=== PATIENT | female | born 1995 | race Caucasian/White ===

== ENCOUNTER 2017-06-07 17:10 | Emergency (ER) | payer OTHER ==
[2017-06-07 19:26] LABS: BASOPHIL 0.3 % (0-2); EOSINOPHIL 0.4 % (0-5); HCT 35.4 % (37.0-47.0); HGB 12.5 g/dl (12.5-16.0); LYMPHOCYTE 18.2 % (15-48); MCH 30.3 pg (25.0-31.0); MCHC 35.3 g/dL (32.0-36.0); MCV 85.9 fL (78.0-100.0); MONOCYTE 7.6 % (0-12); MPV 10.9 fL (6.0-9.5); NEUTROPHIL 73.5 % (41-80); PLT 250 K/uL (150-400); RBC 4.12 M/uL (4.20-5.40); RDW 12.7 % (11.5-14.0); WBC 10.7 K/uL (4.0-10.5)
[2017-06-07 19:26] LABS: BILIRUBIN NEGATIVE (NEGATIVE); BLOOD NEGATIVE Ery/uL (NEGATIVE); CLARITY CLEAR (CLEAR); COLOR YELLOW (YELLOW); GLUCOSE (U) NORMAL (NORMAL); KETONE (U) NEGATIVE (NEGATIVE); LEUKOCYTES NEGATIVE Leu/uL (NEGATIVE); NITRITE NEGATIVE (NEGATIVE); PROTEIN NEGATIVE (NEGATIVE); UROBILINOGEN 0.2 mg/dL (0.2-1.0)
[2017-06-07 19:31] LABS: AMPHETAMINES NEGATIVE (NEGATIVE); BENZODIAZEPINES NEGATIVE (NEGATIVE); COCAINE NEGATIVE (NEGATIVE)
[2017-06-07 19:32] LABS: BARBITURATES NEGATIVE (NEGATIVE); MARIJUANA (THC) NEGATIVE (NEGATIVE); METHADONE NEGATIVE (NEGATIVE); TRICYCLIC ANTIDEPRESSANT NEGATIVE (NEGATIVE)
[2017-06-07 19:41] LABS: CREATININE 0.7 mg/dL (0.5-1.0); POTASSIUM 3.8 mmol/L (3.5-5.1)
== END 2017-06-07 21:12 | disposition home or self-care (01) ==
LOC: FER 17:10
PROVIDERS: Nurse Practitioner Family
DX: R42 Dizziness and giddiness (principal); R25.1 Tremor, unspecified; R06.02 Shortness of breath; Z88.2 Allergy status to sulfonamides; Z88.1 Allergy status to other antibiotic agents
CPT/HCPCS: 36415; 80048; 80305; 81003; 85025; 87804; 87899; 99284